=== PATIENT | female | born 1950 | race Hispanic/Latino ===

== ENCOUNTER 2021-12-24 11:05 | Day surgery (SDC) | payer MEDICARE, MEDICAID ==
[2021-12-23 10:04] VITALS: BMI 22.6
[2021-12-24] MEDS ORDERED: AFRIN NASAL MIST 15 ML BOT ONE ×2 (12:44→17:03)
[2021-12-24 13:22] LABS: Anion Gap 12 mmol/L (10-20); BUN (Urea Nitrogen) 11 mg/dL (9.8-20.1); Calc. Creatinine Clearance 62 mL/min (70-130); Calcium 9.2 mg/dL (7.8-10.44); Carbon Dioxide 25 mmol/L (23-31); Chloride 104 mmol/L (98-107); Glucose 89 mg/dL (80-115); Potassium 3.9 mmol/L (3.5-5.1); Sodium 137 mmol/L (136-145)
[2021-12-24] MEDS ORDERED: Lidocaine 1% w/Epinephrine 1:100K 20 ML VIAL ONE (17:03)
[2021-12-24] MEDS ORDERED: fentaNYL Citrate/PF 100 MCG/2 ML SYRINGE ONE (17:07)
[2021-12-24] MEDS ORDERED: SUGAMMADEX SODIUM 200 MG/2 ML VIAL ONE (17:12)
[2021-12-24] MEDS ORDERED: Ondansetron PF 4 MG/2 ML Vial ONE ×2 (17:24→18:45)
[2021-12-24] MEDS ORDERED: PROPOFOL 200 MG/20 ML VIAL ONE (17:24)
[2021-12-24] MEDS ORDERED: Dexamethasone 20 MG/5 ML VIAL ONE (17:24)
[2021-12-24] MEDS ORDERED: Lidocaine 1% PF 5 ML VIAL ONE (17:24)
[2021-12-24] MEDS ORDERED: Rocuronium Bromide 10 MG/ML (10ML VIAL) ONE (17:24)
[2021-12-24] MEDS ORDERED: hydrALAZINE 20 MG/ML VIAL ONE ×2 (17:55→18:30)
[2021-12-24] MEDS ORDERED: Fentanyl 100 MCG/2 ML VIAL ONE (18:30)
== END 2021-12-24 20:10 | disposition home or self-care (01) ==
LOC: SDC 11:05
PROVIDERS: ATTEND Otolaryngology Plastic Surgery within the Head & Neck
PROC: 8E09XBZ Computer Assisted Procedure of Head and Neck Region (ICD-10-PCS; principal; 2021-12-24)
PROC: 09BR8ZZ Excision of Left Maxillary Sinus, Via Natural or Artificial Opening Endoscopic (ICD-10-PCS; 2021-12-24)
PROC: 099Q8ZZ Drainage of Right Maxillary Sinus, Via Natural or Artificial Opening Endoscopic (ICD-10-PCS; 2021-12-24)
PROC: 09TL7ZZ Resection of Nasal Turbinate, Via Natural or Artificial Opening (ICD-10-PCS; 2021-12-24)
PROC: 09TV8ZZ Resection of Left Ethmoid Sinus, Via Natural or Artificial Opening Endoscopic (ICD-10-PCS; 2021-12-24)
PROC: 09TU8ZZ Resection of Right Ethmoid Sinus, Via Natural or Artificial Opening Endoscopic (ICD-10-PCS; 2021-12-24)
DX: D14.0 Benign neoplasm of middle ear, nasal cavity and accessory sinuses (principal); J30.89 Other allergic rhinitis; B48.8 Other specified mycoses; J32.9 Chronic sinusitis, unspecified; J34.3 Hypertrophy of nasal turbinates; M19.90 Unspecified osteoarthritis, unspecified site; K21.9 Gastro-esophageal reflux disease without esophagitis; Z88.0 Allergy status to penicillin; Z88.5 Allergy status to narcotic agent
CPT/HCPCS: 80048; 85014; 85018; 88304; 93005; 93010; J0360; J1100; J2405; J2704; J3010